=== PATIENT | male | born 1970 | race American Indian/Alaskan Native ===

== ENCOUNTER 2016-12-22 18:15 | Emergency (ER) | payer OTHER ==
[2016-12-22] MEDS ORDERED: CATAPRES ONE ×2 (19:43→19:44)
[2016-12-22] MEDS ORDERED: CATAPRES PO ONE (19:48)
[2016-12-23] MEDS ORDERED: MOTRIN PO ONE ×2 (00:29→00:49)
--- NOTE | 2016-12-23 00:29 | Emergency Department Report ---
HPI - General Chief Complaint: Skin/Abscess/Foreign Body Time Seen by Provider: 12/23/16 00:03 - HPI HPI: 46-year-old male presents to ED complaining of a bite on his right distal thigh x 2 days ago. Patient states he started applying Neosporin and ice on it because he noticed it was a bit swollen. Patient states he noticed some yellowish discharge from the bite xiang shortly after that happened. he denies fever/chills/nausea/vomiting and problems. ED Past Medical Hx - Past Medical History Previous Medical History?: No - Surgical History Past Surgical History?: No - Social History Smoking Status: Current Every Day Smoker Substance Use Type: Alcohol, Non Opiate Pain - Medications Home Medications: Home Medications Medication Instructions Recorded Confirmed Last Taken Type Cephalexin [Keflex] 500 mg PO BID #12 capsule 12/23/16 Unknown Rx Ibuprofen [Motrin 800 MG tab] 800 mg PO TID #30 tablet 12/23/16 Unknown Rx ED Review of Systems ROS: Stated complaint: SPITE BITE Other details as noted in HPI Constitutional: denies: chills, fever Eyes: denies: eye pain, eye discharge, vision change ENT: denies: ear pain, throat pain Respiratory: denies: cough, shortness of breath, wheezing Cardiovascular: denies: chest pain, palpitations Endocrine: no symptoms reported Gastrointestinal: denies: abdominal pain, nausea, diarrhea Genitourinary: denies: urgency, dysuria Musculoskeletal: denies: back pain, joint swelling, arthralgia Skin: denies: rash, lesions Neurological: denies: headache, weakness, paresthesias Psychiatric: denies: anxiety, depression Hematological/Lymphatic: denies: easy bleeding, easy bruising Physical Exam - Physical Exam Vital Signs: Vital Signs 12/22/16 12/22/16 19:35 19:49 Temperature 98.7 F Pulse Rate 79 Blood Pressure 181/125 168/117 Physical Exam: GENERAL: Alert and oriented x3, no apparent distress, Normal Gait, atraumatic. HEAD: Head is normocephalic and a-traumatic. EYES: Extra ocular muscles are intact. Pupils are equal, round, and reactive to light and accommodation. NECK: Supple. Non edematous, No carotid bruits. No lymphadenopathy or thyromegaly. No C-spine tenderness LUNGS: Symetrical with respiration, No wheezing, no rales or crackles, CTAB. HEART: S1, S2 present, regular rate and rhythm without murmur, no rubs, no gallops. Non tender to palpation EXTREMITIES/MUSCULOSKELETAL: No cyanosis, clubbing, rash, lesions or edema. Full ROM bilaterally. UE/LE Pulses 2+ bilaterally. LE 5+ strength bilaterally NEUROLOGIC: The patient is cooperative with no focal neurologic deficits. Cranial nerves II through XII are grossly intact. Normal speech. PSYCHIATRIC: Mood is congruent with affect, denies suicidal or homicidal ideations. SKIN: Warm and dry, one bite sanders surrounded by peritonitis, right posterior thigh .mildly tender to palpation No lesions, No ulceration or induration present. ED Course Vital Signs 12/22/16 12/22/16 19:35 19:49 Temperature 98.7 F Pulse Rate 79 Blood Pressure 181/125 168/117 ED Medical Decision Making - Medical Decision Making 46-year-old male presents with insect bite ED course: She received prednisone, Motrin, Keflex and ED Pressure was elevated in each patient was given clonidine 0.1 mg. Patient states he has no history of hypertension and has no symptoms as headache , dizziness, Discussed patient to apply heat compression due to times a day. Discussed the patient continued to apply Neosporin as he has been doing. She is in no acute distress. Resting comfortably in the room. I discussed the patient follow up with primary care physician for blood pressure evaluation. Patient states understanding and will follow-up Vital signs are normalized, blood pressure decreased prior to discharge. Critical care attestation.: If time is entered above; I have spent that time in minutes in the direct care of this critically ill patient, excluding procedure time. ED Disposition Clinical Impression: Insect bite Qualifiers: Encounter type: initial encounter Qualified Code(s): W57.XXXA - Bitten or stung by nonvenomous insect and other nonvenomous arthropods, initial encounter Disposition: -01 TO HOME OR SELFCARE Is pt being admited?: No Does the pt Need Aspirin: No Condition: Stable Instructions: Cellulitis (ED), Insect Bite or Sting (ED) Additional Instructions: Continue warm compresses. take your medication as prescribed excellent follow-up with primary care Prescriptions: Cephalexin [Keflex] 500 mg PO BID #12 capsule Ibuprofen [Motrin 800 MG tab] 800 mg PO TID #30 tablet Referrals: PRIMARY CARE, [Primary Care Provider] - 3-5 Days KAREN GALVAN MD [Referring] - 3-5 Days [facility] [Outside] - 3-5 Days [facility] [Outside] - 3-5 Days Forms: Accompanied Note, Work/School Release Form(ED) Time of Disposition: 00:34
[2016-12-23] MEDS ORDERED: KEFLEX PO ONE ×2 (00:30→00:49)
[2016-12-23] MEDS ORDERED: DELTASONE PO ONE ×2 (00:35→00:49)
[2016-12-23 04:02] VITALS: BP 154/103
== END 2016-12-23 01:10 | disposition home or self-care (01) ==
LOC: ED 18:15
DX: S70.361A Insect bite (nonvenomous), right thigh, initial encounter (principal); F17.200 Nicotine dependence, unspecified, uncomplicated; W57.XXXA Bitten or stung by nonvenomous insect and other nonvenomous arthropods, initial encounter; Y93.89 Activity, other specified; Y99.9 Unspecified external cause status; Y92.89 Other specified places as the place of occurrence of the external cause
CPT/HCPCS: 99282; J7512